=== PATIENT | female | born 1950 | race Caucasian/White ===

== ENCOUNTER 2017-01-14 11:41 | Inpatient (IN) | payer OTHER, MEDICARE ==
[~2017-01-14] VITALS: Ht 165.1 cm; Wt 92.2 kg
[~2017-01-14 11:41] MED LIST: ASCORBIC ACID500 M3 PO; ASPIRIN EC325 MG PO; ASPIRIN81 M1 PO; BACTRIM,SEPT1 TABLE1 PO; BACTRIM,SEPT1 TABLET PO; CARVEDILOL6.25 MG PO; CEFTIN500 MG PO; CRANBERRY500 M3 PO; Cleocin PO; EFFEXOR XR150 MG PO; EFFEXOR75 MG PO; FEOSOL325 MG PO; FLONASE16 G1 BOTH NARES; FOLIC ACID1 MG PO; FUROSEMIDE40 MG PO; GABAPENTIN300 MG PO; GLUCOPHAGE500 MG PO; Glucophage PO; JANUVIA25 MG PO; KLOR-CON 1010 ME1 PO; LANTUS (UNITS)1 UNIT SC; LANTUS 3 M100 UNITS/ SC; LANTUS 3 M100 UNITS1 SC; LASIX20 MG PO; LEVEMIR FL100 UNITS/ SC; LEVEMIR100 UNIT/2 SQ; LINEZOLID600 MG PO; LIPITOR20 MG PO; LISINOPRIL2.5 MG PO; LISINOPRIL5 MG PO; LOW DOSE ASPIRI81 M2 PO; MELOXICAM15 MG PO; MONOPRIL20 MG PO; NOVOLOG PE100 UNITS/ SC; OXYCODONE HCL10 MG PO; OXYCODONE HCL5 MG PO; PRILOSEC20 MG PO; PRISTIQ50 MG PO; PROTONIX40 MG PO; Protonix PO; REMERON45 MG PO; SILVASORB1.5 OZ TP; TOUJEO SOL300 UNIT/1 SQ; TRADJENTA5 MG PO; TYLENOL REGULA325 MG PO; VIBRAMYCIN100 MG PO; VITAMIN D2000 INTUN PO; Vitamin D PO
[2017-01-14 11:57] LABS: POINT-OF-CARE METER ID UU13113702
[2017-01-14 12:19] LABS: EOSINOPHIL (%) 0.1 % (0-5); HEMATOCRIT 27.8 % (36.0-46.0); IMMATURE GRANULOCYTE (%) 0.5 % (0.0-0.7); IMMATURE GRANULOCYTE COUNT 0.1 K/uL; INSTRUMENT ABS NEUTROPHIL CT 7.2 K/uL; LYMPHOCYTE COUNT 0.7 K/uL (1.0-2.8); MCH 29.5 PG (29.0-34.0); MCV 92.1 FL (83-99); MEAN PLAT.VOLUME 11.1 uM^3 (9.5-12.4); MONOCYTE (%) 13.9 % (3-12); MONOCYTE COUNT 1.3 K/uL (0-0.8); NEUTROPHIL (%) 77.9 % (45-76); NEUTROPHIL COUNT 7.2 K/uL (1.8-6.4); NRBC (%) 0.2 /100 WBC (0-0); PLATELET COUNT 157 K/uL (156-360); RBC DIS.WIDTH-CV 15.2 % (11.8-14.6); RBC DIS.WIDTH-SD 50.4 % (39-53); RED BLOOD COUNT 3.02 M/uL (3.80-5.20); WHITE BLOOD COUNT 9.3 K/uL (4.1-10.2)
[2017-01-14 12:28] LABS: CHLORIDE 108 mEq/L (99-109); POTASSIUM 4.3 mEq/L (3.7-5.4); SODIUM 139 mEq/L (136-147)
[2017-01-14 12:32] LABS: ANION GAP 14 MEQ/L (2-14); TOTAL BILIRUBIN 0.6 mg/dL (0.0-1.0)
[2017-01-14 12:34] LABS: ALKALINE PHOSPHATASE 223 IU/L (3-129); GFR ESTIMATE (CALCULATED) 23 mL/min/
[2017-01-14 12:35] LABS: UREA NITROGEN (BUN) 37 mg/dL (9-23)
[2017-01-14 12:38] LABS: GLUCOSE 434 mg/dL (70-99)
[2017-01-14 12:40] LABS: TROP-I INTERPRETATION NEGATIVE; TROPONIN-I 0.05 ng/mL (0.0-0.30)
[2017-01-14 13:27] LABS: ADD MIUA? YES; BILIRUBIN NEGATIVE; BLOOD NEGATIVE; COLOR YELLOW ((YELLOW)); GLUCOSE (STRIP) >=500; KETONES 5; LEUKOCYTES MODERATE; NITRITE NEGATIVE; PROTEIN (STRIP) >=500; SPECIFIC GRAVITY 1.011 (1.000-1.030); UROBILINOGEN 0.2 MG/DL (0.2-1.0)
[2017-01-14 13:55] LABS: BACTERIA 3+ /HPF; EPITHELIAL CELLS NONE SEEN /HPF; MUCUS TRACE /LPF; WHITE BLOOD CELLS TNTC /HPF (0-5); WHITE BLOOD CELLS CLUMP MOD /HPF (0-5)
[2017-01-14] MEDS ORDERED: VITAMIN C1000 MG PO (14:49)
[2017-01-14] MEDS ORDERED: VITAMIN D35000 UNIT PO (14:51)
[2017-01-14] MEDS ORDERED: TOUJEO SOL300 UNIT/1 SC (14:53)
[2017-01-14] MEDS ORDERED: PANTOPRAZOLE SO40 MG PO (14:54)
[2017-01-14] MEDS ORDERED: TRADJENTA5 MG PO (14:55)
[2017-01-14] MEDS ORDERED: IRBESARTAN300 MG PO (14:56)
[2017-01-14] MEDS ORDERED: EPOGEN,PRO20000 UNIT IV (14:57)
[2017-01-14 15:13] LABS: POINT-OF-CARE METER ID UU13113702
[2017-01-14 18:15] VITALS: BP 191/87
[2017-01-14 19:48] VITALS: BP 186/84
[2017-01-14 22:32] LABS: POINT-OF-CARE USER ID 609231305
[2017-01-14 22:39] LABS: INFLUENZA A VIRAL ANTIGEN NEGATIVE; INFLUENZA B VIRAL ANTIGEN NEGATIVE
[2017-01-14 23:17] VITALS: BP 139/62
[2017-01-15 03:36] VITALS: BP 167/75
[2017-01-15 06:18] LABS: HEMATOCRIT 24.9 % (36.0-46.0); MCHC 32.1 G/DL (30.0-36.0); MCV 93.3 FL (83-99); MEAN PLAT.VOLUME 11.1 uM^3 (9.5-12.4); PLATELET COUNT 159 K/uL (156-360); RBC DIS.WIDTH-CV 15.8 % (11.8-14.6); RBC DIS.WIDTH-SD 53.2 % (39-53); RED BLOOD COUNT 2.67 M/uL (3.80-5.20); WHITE BLOOD COUNT 9.2 K/uL (4.1-10.2)
[2017-01-15 06:29] LABS: POINT-OF-CARE USER ID 609231305
[2017-01-15 06:36] LABS: ANION GAP 10 MEQ/L (2-14); CHLORIDE 109 MEQ/L (99-109); GFR ESTIMATE (CALCULATED) 26 mL/min/; GLUCOSE 223 mg/dL (70-99); POTASSIUM 3.9 MEQ/L (3.7-5.4); SAMPLE HEMOLYSIS CHECK 0; SAMPLE ICTERIC CHECK 0; SAMPLE LIPEMIA CHECK 0; SODIUM 139 MEQ/L (136-147); UREA NITROGEN (BUN) 35 mg/dL (9-23)
[2017-01-15 07:18] VITALS: BP 157/71
[2017-01-15 08:23] LABS: EOSINOPHIL (%) 0.2 % (0-5); HEMATOLOGY COMMENT 1 SMEAR COMPATIBLE; IMMATURE GRANULOCYTE COUNT 0.1 K/uL; INSTRUMENT ABS NEUTROPHIL CT 6.7 K/uL; LYMPHOCYTE COUNT 0.8 K/uL (1.0-2.8); MONOCYTE COUNT 1.7 K/uL (0-0.8); NEUTROPHIL (%) 72.1 % (45-76); NEUTROPHIL COUNT 6.7 K/uL (1.8-6.4)
[2017-01-15 12:20] VITALS: BP 146/67
[2017-01-15 15:51] VITALS: BP 142/68
[2017-01-15 17:27] LABS: POINT-OF-CARE METER ID UU14162508
[2017-01-15 18:37] VITALS: BP 142/63
[2017-01-15 22:22] LABS: POINT-OF-CARE METER ID UU14162508
[2017-01-15 22:57] VITALS: BP 174/74
[2017-01-16 02:49] VITALS: BP 149/68
[2017-01-16 06:50] VITALS: BP 150/70
[2017-01-16 07:35] LABS: ANION GAP 9 MEQ/L (2-14); CHLORIDE 113 MEQ/L (99-109); GFR ESTIMATE (CALCULATED) 25 mL/min/; GLUCOSE 129 mg/dL (70-99); POTASSIUM 4.1 MEQ/L (3.7-5.4); SAMPLE HEMOLYSIS CHECK 0; SAMPLE ICTERIC CHECK 0; SAMPLE LIPEMIA CHECK 0; SODIUM 143 MEQ/L (136-147); UREA NITROGEN (BUN) 33 mg/dL (9-23)
[2017-01-16 12:21] VITALS: BP 135/61
[2017-01-16 16:04] VITALS: BP 160/60
[2017-01-16 16:18] LABS: POINT-OF-CARE METER ID UU14162508
[2017-01-16 19:35] VITALS: BP 163/67
[2017-01-16 23:20] VITALS: BP 151/70
[2017-01-17 05:05] VITALS: BP 138/83
[2017-01-17 07:15] VITALS: BP 152/67
[2017-01-17 07:16] LABS: POINT-OF-CARE METER ID UU14162508
[2017-01-17 07:25] LABS: ANION GAP 8 MEQ/L (2-14); CHLORIDE 114 MEQ/L (99-109); GFR ESTIMATE (CALCULATED) 28 mL/min/; GLUCOSE 127 mg/dL (70-99); POTASSIUM 3.8 MEQ/L (3.7-5.4); SAMPLE HEMOLYSIS CHECK 0; SAMPLE ICTERIC CHECK 0; SAMPLE LIPEMIA CHECK 0; SODIUM 142 MEQ/L (136-147); UREA NITROGEN (BUN) 28 mg/dL (9-23)
[2017-01-17 07:30] VITALS: BP 152/67
[2017-01-17 11:20] VITALS: BP 175/77
[2017-01-17 15:07] VITALS: BP 164/73
[2017-01-17] MEDS ORDERED: CEFTIN250 MG PO (16:31)
== END 2017-01-17 18:49 | disposition home or self-care (01) | DRG 682 ==
LOC: EME 11:41 → EDOF 15:56 → 2EAST 15:56
PROVIDERS: Emergency Medicine; Internal Medicine
DX: N17.9 Acute kidney failure, unspecified (principal); L89.613 Pressure ulcer of right heel, stage 3; D63.8 Anemia in other chronic diseases classified elsewhere; I12.9 Hypertensive chronic kidney disease with stage 1 through stage 4 chronic kidney disease, or unspecified chronic kidney disease; N31.9 Neuromuscular dysfunction of bladder, unspecified; E11.65 Type 2 diabetes mellitus with hyperglycemia; E11.22 Type 2 diabetes mellitus with diabetic chronic kidney disease; E86.0 Dehydration; M06.9 Rheumatoid arthritis, unspecified; Z87.440 Personal history of urinary (tract) infections; E11.42 Type 2 diabetes mellitus with diabetic polyneuropathy; Z86.73 Personal history of transient ischemic attack (TIA), and cerebral infarction without residual deficits; N30.00 Acute cystitis without hematuria; B34.9 Viral infection, unspecified; N18.3 Chronic kidney disease, stage 3 (moderate); B96.20 Unspecified Escherichia coli [E. coli] as the cause of diseases classified elsewhere
CPT/HCPCS: 71010; 80048; 80053; 81003; 82010; 82948; 83605; 84484; 85025; 86900; 86901; 87077; 87086; 87186; 87502; 99281; 99285; J0696; J1644; J1815; J2405; J7030; J7050

== ENCOUNTER 2018-04-25 09:36 | Day surgery (SDC) | payer OTHER, MEDICARE ==
[~2018-04-25] VITALS: Ht 165.1 cm; Wt 83.5 kg
[~2018-04-25 09:36] MED LIST changes: +CEFTIN250 MG PO; +COREG12.5 M1 PO; +EPOGEN,PRO20000 UNIT IV; +IRBESARTAN300 MG PO; +IRON325 M1 PO; +LIPITOR40 MG PO; +LYRICA50 MG PO; +PANTOPRAZOLE SO40 MG PO; +TOUJEO SOL300 UNIT/1 SC; +VITAMIN B-121000 MC3 PO; +VITAMIN C1000 MG PO; +VITAMIN D35000 UNIT PO; +ZANTAC300 MG PO
[2018-04-25 10:12] LABS: HEMOGLOBIN 11.3 G/DL (11.9-15.5); MCH 28.8 PG (29.0-34.0); MCHC 31.4 G/DL (30.0-36.0); MCV 91.8 FL (83-99); PLATELET COUNT 202 K/uL (156-360); RBC DIS.WIDTH-CV 16.1 % (11.8-14.6); RED BLOOD COUNT 3.92 M/uL (3.80-5.20); WHITE BLOOD COUNT 15.3 K/uL (4.1-10.2)
[2018-04-25 10:23] VITALS: BP 181/78
[2018-04-25 10:48] LABS: CHLORIDE 112 MEQ/L (99-109); CREATININE 2.6 MG/DL (0.6-1.3); GFR ESTIMATE (CALCULATED) 20 mL/min/; GLUCOSE 294 mg/dL (70-99); POTASSIUM 4.4 MEQ/L (3.7-5.4); SODIUM 136 MEQ/L (136-147); UREA NITROGEN (BUN) 47 mg/dL (9-23)
[2018-04-25 16:10] VITALS: BP 141/67
[2018-04-25 17:13] VITALS: BP 187/84
== END 2018-04-25 17:30 | disposition home or self-care (01) ==
LOC: SDC 09:36
PROVIDERS: Surgery
DX: I12.0 Hypertensive chronic kidney disease with stage 5 chronic kidney disease or end stage renal disease (principal); E11.22 Type 2 diabetes mellitus with diabetic chronic kidney disease; N18.6 End stage renal disease; D64.9 Anemia, unspecified; Z86.73 Personal history of transient ischemic attack (TIA), and cerebral infarction without residual deficits; Z79.84 Long term (current) use of oral hypoglycemic drugs; Z79.82 Long term (current) use of aspirin
CPT/HCPCS: 80048; 82948; 85027; 93005; J0330; J0690; J1100; J1644; J2250; J2720; J3010

== ENCOUNTER 2018-05-03 10:08 | Inpatient (IN) | payer OTHER, MEDICARE ==
[~2018-05-03] VITALS: Ht 165.1 cm; Wt 80.0 kg
[~2018-05-03 10:08] MED LIST changes: -EPOGEN,PRO20000 UNIT IV; +EPOGEN,PRO20000 UNIT SC
[2018-05-03 12:24] LABS: HEMATOCRIT 32.9 % (36.0-46.0); HEMOGLOBIN 10.3 G/DL (11.9-15.5); MCHC 31.3 G/DL (30.0-36.0); MCV 92.7 FL (83-99); PLATELET COUNT 208 K/uL (156-360); RBC DIS.WIDTH-CV 15.8 % (11.8-14.6); RBC DIS.WIDTH-SD 54.2 % (39-53); RED BLOOD COUNT 3.55 M/uL (3.80-5.20); WHITE BLOOD COUNT 13.5 K/uL (4.1-10.2)
[2018-05-03 12:34] LABS: CHLORIDE 110 mEq/L (99-109); POTASSIUM 4.3 mEq/L (3.7-5.4); SODIUM 136 mEq/L (136-147)
[2018-05-03 12:36] LABS: GLUCOSE 262 mg/dL (70-99)
[2018-05-03 12:39] LABS: CREATININE 3.8 mg/dL (0.6-1.3); GFR ESTIMATE (CALCULATED) 13 mL/min/
[2018-05-03 12:40] LABS: UREA NITROGEN (BUN) 78 mg/dL (9-23)
[2018-05-03 16:25] LABS: CARBON DIOXIDE (BICARBONATE) 14.4 MEQ/L (20-31)
[2018-05-03] MEDS ORDERED: AUGMENTIN875 MG PO (16:49)
[2018-05-03] MEDS ORDERED: CALCITRIOL0.25 MCG PO (16:50)
[2018-05-03 17:37] LABS: CHLORIDE 116 mEq/L (99-109); POTASSIUM 4.2 mEq/L (3.7-5.4); SODIUM 140 mEq/L (136-147)
[2018-05-03 17:38] LABS: GLUCOSE 213 mg/dL (70-99)
[2018-05-03 17:42] LABS: CREATININE 3.3 mg/dL (0.6-1.3); GFR ESTIMATE (CALCULATED) 15 mL/min/
[2018-05-03 17:43] LABS: UREA NITROGEN (BUN) 65 mg/dL (9-23)
[2018-05-03 19:21] VITALS: BP 168/79
[2018-05-04] VITALS (7 sets, daily range): BP systolic 121–171; BP diastolic 58–78
[2018-05-05 03:40] VITALS: BP 167/75
[2018-05-05 05:46] LABS: BASOPHIL (%) 0.5 % (0-1); EOSINOPHIL (%) 6.1 % (0-5); EOSINOPHIL COUNT 0.5 K/uL (0-0.3); HEMOGLOBIN 9.7 G/DL (11.9-15.5); IMMATURE GRANULOCYTE (%) 3.5 % (0.0-0.7); LYMPHOCYTE (%) 18.1 % (15-42); LYMPHOCYTE COUNT 1.3 K/uL (1.0-2.8); MCH 28.3 PG (29.0-34.0); MCHC 31.3 G/DL (30.0-36.0); MCV 90.4 FL (83-99); MONOCYTE COUNT 1.1 K/uL (0-0.8); NEUTROPHIL (%) 56.8 % (45-76); NEUTROPHIL COUNT 4.2 K/uL (1.8-6.4); NRBC (%) 0.3 /100 WBC (0-0); PLATELET COUNT 207 K/uL (156-360); RBC DIS.WIDTH-CV 15.4 % (11.8-14.6); RBC DIS.WIDTH-SD 50.6 % (39-53); RED BLOOD COUNT 3.43 M/uL (3.80-5.20); WHITE BLOOD COUNT 7.3 K/uL (4.1-10.2)
[2018-05-05 06:18] LABS: ALBUMIN 2.6 G/DL (3.2-4.8); ALT (GPT) 4 IU/L (3-49); CHLORIDE 111 MEQ/L (99-109); GLUCOSE 243 mg/dL (70-99); MAGNESIUM 1.6 mg/dl (1.3-2.7); PHOSPHORUS 3.4 mg/dL (2.5-4.9); SODIUM 143 MEQ/L (136-147); TOTAL BILIRUBIN 0.2 MG/DL (0.0-1.0); TOTAL PROTEIN 5.5 G/DL (6.4-8.3); UREA NITROGEN (BUN) 49 mg/dL (9-23)
[2018-05-05 06:19] LABS: ALKALINE PHOSPHATASE 107 IU/L (3-129); AST (GOT) 7 IU/L (2-34)
[2018-05-05 06:22] LABS: CREATININE 2.4 MG/DL (0.6-1.3); GFR ESTIMATE (CALCULATED) 21 mL/min/; POTASSIUM 3.2 MEQ/L (3.7-5.4)
[2018-05-05 08:21] VITALS: BP 171/76
[2018-05-05 15:54] VITALS: BP 152/67
[2018-05-05 19:45] VITALS: BP 138/66
[2018-05-06 00:17] VITALS: BP 149/69
[2018-05-06 04:41] VITALS: BP 145/67
[2018-05-06 06:27] LABS: HEMATOCRIT 32.9 % (36.0-46.0); MCH 27.9 PG (29.0-34.0); MCHC 30.4 G/DL (30.0-36.0); MCV 91.9 FL (83-99); NRBC (%) 0.4 /100 WBC (0-0); PLATELET COUNT 237 K/uL (156-360); RBC DIS.WIDTH-CV 15.4 % (11.8-14.6); RBC DIS.WIDTH-SD 51.8 % (39-53); RED BLOOD COUNT 3.58 M/uL (3.80-5.20)
[2018-05-06 06:46] LABS: CHLORIDE 114 MEQ/L (99-109); CREATININE 2.2 MG/DL (0.6-1.3); GFR ESTIMATE (CALCULATED) 24 mL/min/; SODIUM 148 MEQ/L (136-147); UREA NITROGEN (BUN) 40 mg/dL (9-23)
[2018-05-06 06:48] LABS: GLUCOSE 93 mg/dL (70-99); POTASSIUM 3.9 MEQ/L (3.7-5.4)
[2018-05-06 08:32] VITALS: BP 178/75
[2018-05-06 15:54] VITALS: BP 160/70
[2018-05-06 23:52] VITALS: BP 160/70
[2018-05-07 08:27] VITALS: BP 151/69
[2018-05-07 09:10] LABS: CHLORIDE 112 MEQ/L (99-109); GFR ESTIMATE (CALCULATED) 26 mL/min/; GLUCOSE 95 mg/dL (70-99); POTASSIUM 4.3 MEQ/L (3.7-5.4); SODIUM 145 MEQ/L (136-147); UREA NITROGEN (BUN) 34 mg/dL (9-23)
[2018-05-07 15:38] VITALS: BP 162/72
[2018-05-08 01:35] VITALS: BP 160/70
[2018-05-08 06:07] LABS: BASOPHIL (%) 0.7 % (0-1); BASOPHIL COUNT 0.1 K/uL (0-0.1); EOSINOPHIL (%) 5.1 % (0-5); EOSINOPHIL COUNT 0.5 K/uL (0-0.3); HEMATOCRIT 31.2 % (36.0-46.0); HEMOGLOBIN 9.5 G/DL (11.9-15.5); IMMATURE GRANULOCYTE (%) 1.3 % (0.0-0.7); LYMPHOCYTE (%) 22.3 % (15-42); MCH 28.6 PG (29.0-34.0); MCHC 30.4 G/DL (30.0-36.0); MONOCYTE (%) 9.9 % (3-12); MONOCYTE COUNT 0.9 K/uL (0-0.8); NEUTROPHIL (%) 60.7 % (45-76); NEUTROPHIL COUNT 5.5 K/uL (1.8-6.4); PLATELET COUNT 209 K/uL (156-360); RBC DIS.WIDTH-CV 15.5 % (11.8-14.6); RBC DIS.WIDTH-SD 52.7 % (39-53); RED BLOOD COUNT 3.32 M/uL (3.80-5.20)
[2018-05-08 06:29] LABS: CHLORIDE 110 MEQ/L (99-109); CREATININE 2.1 MG/DL (0.6-1.3); GFR ESTIMATE (CALCULATED) 25 mL/min/; GLUCOSE 141 mg/dL (70-99); POTASSIUM 3.7 MEQ/L (3.7-5.4); SODIUM 143 MEQ/L (136-147); UREA NITROGEN (BUN) 36 mg/dL (9-23)
[2018-05-08 06:45] VITALS: BP 135/68
[2018-05-08] MEDS ORDERED: DURICEF500 MG PO (08:53)
[2018-05-08] MEDS ORDERED: AMLODIPINE BESY10 MG PO (15:47)
[2018-05-08] MEDS ORDERED: ZESTRIL2.5 MG PO (15:47)
[2018-05-08] MEDS ORDERED: CARVEDILOL25 MG PO (15:47)
[2018-05-08] MEDS ORDERED: APRESOLINE50 MG PO (15:47)
[2018-05-08 16:17] VITALS: BP 143/67
== END 2018-05-08 16:38 | disposition home or self-care (01) | DRG 603 ==
LOC: EME 10:08 → 2EAST 16:30 → EDOF 16:30 → CANRESERV 16:56 → ENRESERV 16:56 → 2EAST 19:17
PROVIDERS: Emergency Medicine; Internal Medicine; Internal Medicine Nephrology; Physician Assistant; Physician Assistant Surgical
DX: L02.811 Cutaneous abscess of head [any part, except face] (principal); N17.9 Acute kidney failure, unspecified; L03.811 Cellulitis of head [any part, except face]; L02.821 Furuncle of head [any part, except face]; N18.3 Chronic kidney disease, stage 3 (moderate); F32.9 Major depressive disorder, single episode, unspecified; N31.9 Neuromuscular dysfunction of bladder, unspecified; I87.2 Venous insufficiency (chronic) (peripheral); M14.671 Charcot's joint, right ankle and foot; E11.610 Type 2 diabetes mellitus with diabetic neuropathic arthropathy; Z96.651 Presence of right artificial knee joint; E11.42 Type 2 diabetes mellitus with diabetic polyneuropathy; E87.2 Acidosis; Z86.14 Personal history of Methicillin resistant Staphylococcus aureus infection; E11.22 Type 2 diabetes mellitus with diabetic chronic kidney disease; N18.4 Chronic kidney disease, stage 4 (severe); D63.1 Anemia in chronic kidney disease; L97.419 Non-pressure chronic ulcer of right heel and midfoot with unspecified severity; Z90.710 Acquired absence of both cervix and uterus; Z87.442 Personal history of urinary calculi; Z79.4 Long term (current) use of insulin; I77.0 Arteriovenous fistula, acquired; I12.0 Hypertensive chronic kidney disease with stage 5 chronic kidney disease or end stage renal disease; J98.11 Atelectasis; E11.65 Type 2 diabetes mellitus with hyperglycemia; A49.01 Methicillin susceptible Staphylococcus aureus infection, unspecified site
CPT/HCPCS: 71045; 80048; 80048 91; 80069; 80076; 81003; 82803; 82948; 83605; 83735; 84100; 85025; 85027; 87070; 87075; 87077; 87086; 87147; 87186; 87205; 93971; 99281; 99284; J0690; J1644; J1815; J2543; J3370; J7030; J7050; J7070

== ENCOUNTER 2018-05-15 14:16 | Emergency (ER) | payer OTHER, MEDICARE ==
[~2018-05-15] VITALS: Ht 165.1 cm; Wt 88.4 kg
[~2018-05-15 14:16] MED LIST changes: +AMLODIPINE BESY10 MG PO; +APRESOLINE50 MG PO; +AUGMENTIN875 MG PO; +CALCITRIOL0.25 MCG PO; +CARVEDILOL25 MG PO; +DURICEF500 MG PO; +ZESTRIL2.5 MG PO
[2018-05-15 15:36] LABS: HEMOGLOBIN 9.5 G/DL (11.9-15.5); MCH 29.4 PG (29.0-34.0); MCHC 30.6 G/DL (30.0-36.0); PLATELET COUNT 177 K/uL (156-360); RBC DIS.WIDTH-CV 16.8 % (11.8-14.6); RBC DIS.WIDTH-SD 59.3 % (39-53); RED BLOOD COUNT 3.23 M/uL (3.80-5.20); WHITE BLOOD COUNT 10.5 K/uL (4.1-10.2)
[2018-05-15 15:52] LABS: CHLORIDE 115 mEq/L (99-109); POTASSIUM 4.8 mEq/L (3.7-5.4); SODIUM 140 mEq/L (136-147)
[2018-05-15 15:54] LABS: GLUCOSE 57 mg/dL (70-99)
[2018-05-15 15:58] LABS: CREATININE 2.4 mg/dL (0.6-1.3); GFR ESTIMATE (CALCULATED) 21 mL/min/; UREA NITROGEN (BUN) 49 mg/dL (9-23)
[2018-05-15 16:01] LABS: TROP-I INTERPRETATION NEGATIVE; TROPONIN-I < 0.01 ng/mL (0.0-0.30)
[2018-05-15 18:14] VITALS: BP 135/71
== END 2018-05-15 18:15 | disposition home or self-care (01) ==
LOC: EME 14:16
PROVIDERS: Emergency Medicine
DX: R60.0 Localized edema (principal); E11.22 Type 2 diabetes mellitus with diabetic chronic kidney disease; I12.9 Hypertensive chronic kidney disease with stage 1 through stage 4 chronic kidney disease, or unspecified chronic kidney disease; N18.9 Chronic kidney disease, unspecified; Z79.4 Long term (current) use of insulin; F32.9 Major depressive disorder, single episode, unspecified; K21.9 Gastro-esophageal reflux disease without esophagitis; F41.9 Anxiety disorder, unspecified; Z96.651 Presence of right artificial knee joint; Z87.442 Personal history of urinary calculi; Z90.49 Acquired absence of other specified parts of digestive tract
CPT/HCPCS: 71046; 80048; 83880; 84484; 85027; 93005; 99281; 99285; J1940